=== PATIENT | male | born 1970 ===

== ENCOUNTER 2017-11-19 09:48 | Emergency (ER) | payer OTHER ==
[2017-11-19 10:19] VITALS: BP 185/109
--- NOTE | 2017-11-19 11:51 | UC ---
Skin Complaint HPI - HPI Summary HPI Summary: Pt is a 47 y/o M w/ c/o erythematous area on right inner knee onsetting a week ago. He recalls doing some gardening and weeding around this time frame. The area has gotten larger since onset and notes it is pruritic and slightly uncomfortable to palpation but denies pain. He has been treating affected area with hydrocortisone and Neosporin. - History of Current Complaint Chief Complaint: UCSkin Time Seen by Provider: 11/19/17 10:28 Stated Complaint: SKIN COMPLAINT Hx Obtained From: Patient Onset/Duration: Lasting Weeks - 1 week ago Timing: Constant Current Severity: None - denies pain Pain Intensity: 0 Pain Scale Used: 0-10 Numeric Location: Discrete - right inner knee Character: Redness Aggravating Factor(s): Nothing Alleviating Factor(s): Nothing - Allergy/Home Medications Allergies/Adverse Reactions: Allergies Allergy/AdvReac Type Severity Reaction Status Date / Time No Known Allergies Allergy Verified 11/19/17 10:18 Review of Systems Constitutional: Other - NEGATIVE: fever Musculoskeletal: Other: - POSITIVE: erythematous, pruritic area on right inner knee All Other Systems Reviewed And Are Negative: Yes PMH/Surg Hx/FS Hx/Imm Hx Endocrine History: Other Other Endocrine History: NEGATIVE: diabetes Cardiovascular History: Other Other Cardiovascular History: NEGATIVE: CHF - Surgical History Surgical History: None - Family History Known Family History: Negative: Blood Disorder - Social History Alcohol Use: Occasionally Substance Use Type: None Smoking Status (MU): Never Smoked Tobacco Physical Exam - Summary Physical Exam Summary: General: well-appearing, no pain distress Skin: warm, color reflects adequate perfusion, dry; right medial, anterior knee , 3 cm by 2 cm erythematous, no indurantion, no streaking Head: normal Eyes: EOMI, PIETER ENT: normal Neck: supple, nontender Respiratory: CTA, breath sounds present Cardiovascular: RRR Abdomen: soft, nontender Bowel: present Musculoskeletal: normal, strength/ROM intact Neurological: sensory/motor intact, A&O x3 Psychological: affect/mood appropriate Triage Information Reviewed: Yes Vital Signs: Initial Vital Signs Temp 99.0 F 11/19/17 10:16 Pulse 97 11/19/17 10:16 Resp 18 11/19/17 10:16 BP 185/109 11/19/17 10:16 Pulse Ox 99 11/19/17 10:16 Vital Signs Reviewed: Yes Course/Dx - Course Course Of Treatment: F/U PMD; RECHECK SOONER IF WORSE. - Diagnoses Provider Diagnoses: CELLULITIS RIGHT LEG Discharge - Sign-Out/Discharge Documenting (check all that apply): Patient Departure - Discharge Plan Condition: Stable Disposition: HOME Prescriptions: Cephalexin CAP* [Keflex CAP*] 500 mg PO TID #30 cap Mupirocin 1 applic TOPICAL TID #22 gm Patient Education Materials: Cellulitis (ED), Acute Rash (ED) Referrals: [facility] [Outside] Additional Instructions: FOLLOW UP WITH YOUR DOCTOR. GET RECHECKED FOR ANY WORSENING OF YOUR CONDITION; SPREAD OF THE RASH, FEVER, YOU FEEL ILL OR QUESTIONS OR CONCERNS. - Billing Disposition and Condition Condition: STABLE Disposition: Home
== END 2017-11-19 10:45 | disposition home or self-care (01) ==
LOC: UCEAST 09:48
DX: L03.115 Cellulitis of right lower limb (principal)
CPT/HCPCS: 99202; G0463